=== PATIENT | female | born 1965 | race Two or more races ===

== ENCOUNTER 2016-12-31 21:22 | Emergency (ER) | payer BC ==
[~2016-12-31] VITALS: Ht 154.9 cm; Wt 80.8 kg
[2016-12-31] MEDS ORDERED: LABETALOL 20 MG/4 ML IVPush STA (21:38)
[2016-12-31] MEDS ORDERED: hydrALAzine 20 MG/ML, 1ML IV ONE (22:00)
[2016-12-31] MEDS ORDERED: CLON0.1T PO (22:07)
[2016-12-31 22:13] LABS: HEMOGLOBIN 13.5 g/dL (11.7-16.4)
[2016-12-31] MEDS ORDERED: LOSA1TAB17 PO (22:14)
[2016-12-31] MEDS ORDERED: ATEN50TA41 PO (22:15)
[2016-12-31 22:22] LABS: BLOOD UREA NITROGEN 25 mg/dL (7-18)
[2016-12-31 22:26] VITALS: BP 146/70
[2016-12-31 22:28] LABS: IS PT STATUS REG ER OR PRE ER? YES
== END 2016-12-31 23:21 | disposition home or self-care (01) ==
LOC: ED 23:15
DX: I10 Essential (primary) hypertension (principal)
CPT/HCPCS: 36415; 80048; 82040; 84484; 85025; 93005; 99285; J3490

== ENCOUNTER → 2017-03-09 | Outpatient (CLI) | payer BC ==
[~2017-03-09] MED LIST: ATEN50TA41 PO; CLON0.1T PO; LOSA1TAB17 PO; REGADENOSON 0.4 MG/5 ML SYRINGE ONE
== END | disposition home or self-care (01) ==
LOC: CFH 12:26
PROVIDERS: ATTEND Internal Medicine Cardiovascular Disease
DX: I08.3 Combined rheumatic disorders of mitral, aortic and tricuspid valves (principal); I10 Essential (primary) hypertension; R94.31 Abnormal electrocardiogram [ECG] [EKG]
CPT/HCPCS: 78452; 93017; 93306; A9502; J2785

== ENCOUNTER → 2017-05-07 | Outpatient (CLI) | payer BC ==
[~2017-05-07] MED LIST changes: -REGADENOSON 0.4 MG/5 ML SYRINGE ONE
== END | disposition home or self-care (01) ==
LOC: CFH 14:34
PROVIDERS: ATTEND Obstetrics & Gynecology Female Pelvic Medicine and Reconstructive Surgery
DX: N63 Unspecified lump in breast (principal)
CPT/HCPCS: 76641; G0206

== ENCOUNTER → 2017-05-10 | Outpatient (CLI) | payer BC ==
[~2017-05-10] MED LIST changes: +LIDOCAINE 1%, 20ML ONE; +LIDOCAINE 1%-EPI 1:100K, 20ML ONE; +SODIUM BICARBONATE 4.2%, 5ML ONE
== END | disposition home or self-care (01) ==
LOC: CFH 07:19
PROVIDERS: ATTEND Obstetrics & Gynecology Female Pelvic Medicine and Reconstructive Surgery
DX: N63 Unspecified lump in breast (principal)
CPT/HCPCS: 19083; 88305; G0206; J3490; 77063

== ENCOUNTER → 2017-05-31 | Outpatient (CLI) | payer BC ==
[~2017-05-31] MED LIST changes: -LIDOCAINE 1%, 20ML ONE; -LIDOCAINE 1%-EPI 1:100K, 20ML ONE; -SODIUM BICARBONATE 4.2%, 5ML ONE
== END | disposition home or self-care (01) ==
LOC: ROC 10:00
PROVIDERS: ATTEND Radiology Radiation Oncology
DX: N63 Unspecified lump in breast (principal)
CPT/HCPCS: 99214; G0463

== ENCOUNTER → 2017-07-19 | Outpatient (CLI) | payer BC ==
[~2017-07-19] MED LIST changes: -LOSA1TAB17 PO; +LOSA1TAB22 PO
== END | disposition home or self-care (01) ==
LOC: ROC 08:46
PROVIDERS: ATTEND Radiology Radiation Oncology
DX: C50.912 Malignant neoplasm of unspecified site of left female breast (principal); Z90.710 Acquired absence of both cervix and uterus
CPT/HCPCS: 99212; G0463

== ENCOUNTER → 2017-10-18 | Outpatient (CLI) | payer BC | END | disposition home or self-care (01) | LOC: ROC 14:38 | PROVIDERS: ATTEND Radiology Radiation Oncology | DX: Z08 Encounter for follow-up examination after completed treatment for malignant neoplasm (principal); C50.112 Malignant neoplasm of central portion of left female breast | CPT/HCPCS: 99212; G0463 ==

== ENCOUNTER → 2018-01-20 | Outpatient (CLI) | payer BC | END | disposition home or self-care (01) | LOC: CFH 09:58 | PROVIDERS: ATTEND Internal Medicine Hematology & Oncology | DX: Z13.820 Encounter for screening for osteoporosis (principal); C50.212 Malignant neoplasm of upper-inner quadrant of left female breast; Z78.0 Asymptomatic menopausal state | CPT/HCPCS: 77080 ==

== ENCOUNTER → 2018-03-14 | Outpatient (CLI) | payer BC | END | disposition home or self-care (01) | LOC: ROC 09:58 | PROVIDERS: ATTEND Radiology Radiation Oncology | DX: Z08 Encounter for follow-up examination after completed treatment for malignant neoplasm (principal); C50.112 Malignant neoplasm of central portion of left female breast | CPT/HCPCS: 99212; G0463 ==

== ENCOUNTER → 2018-04-27 | Outpatient (CLI) | payer BC | END | disposition home or self-care (01) | LOC: CFH 12:09 | PROVIDERS: ATTEND Radiology Radiation Oncology | DX: C50.112 Malignant neoplasm of central portion of left female breast (principal); N64.89 Other specified disorders of breast | CPT/HCPCS: 77066 ==

== ENCOUNTER 2018-10-17 12:16 | Outpatient (CLI) | payer BC ==
[~2018-10-17 12:16] MED LIST changes: -CLON0.1T PO; +CLON0.1T22 PO
== END 2018-10-17 23:59 | disposition home or self-care (01) ==
LOC: CFH 12:16
PROVIDERS: ATTEND Surgery
DX: Z08 Encounter for follow-up examination after completed treatment for malignant neoplasm (principal); Z85.3 Personal history of malignant neoplasm of breast; Z92.3 Personal history of irradiation
CPT/HCPCS: 77065; G0279

== ENCOUNTER → 2018-10-28 | Outpatient (CLI) | payer BC | END | disposition home or self-care (01) | LOC: RAD 16:00 | PROVIDERS: ATTEND Family Medicine | DX: M77.32 Calcaneal spur, left foot (principal); D48.7 Neoplasm of uncertain behavior of other specified sites; Z79.899 Other long term (current) drug therapy ==

== ENCOUNTER → 2019-03-17 | Outpatient (CLI) | payer BC | END | disposition home or self-care (01) | LOC: RAD 15:47 | PROVIDERS: ATTEND Family Medicine | DX: M25.511 Pain in right shoulder (principal) ==

== ENCOUNTER 2019-04-28 08:17 | Outpatient (CLI) | payer BC | END 2019-04-28 23:59 | disposition home or self-care (01) | LOC: CFH 08:17 | PROVIDERS: ATTEND Internal Medicine Hematology & Oncology | DX: Z12.31 Encounter for screening mammogram for malignant neoplasm of breast (principal); Z85.3 Personal history of malignant neoplasm of breast | CPT/HCPCS: 76641; 77063; 77067 ==

== ENCOUNTER 2019-05-02 11:07 | Outpatient (CLI) | payer BC | END 2019-05-02 23:59 | disposition home or self-care (01) | LOC: ROC 11:07 | PROVIDERS: ATTEND Radiology Radiation Oncology | DX: C50.919 Malignant neoplasm of unspecified site of unspecified female breast (principal) | CPT/HCPCS: 99212; G0463 ==

== ENCOUNTER 2020-02-26 10:38 | Outpatient (CLI) | payer BC | END 2020-02-26 23:59 | disposition home or self-care (01) | LOC: ROC 10:38 | PROVIDERS: ATTEND Radiology Radiation Oncology | DX: Z08 Encounter for follow-up examination after completed treatment for malignant neoplasm (principal); C50.112 Malignant neoplasm of central portion of left female breast; E11.22 Type 2 diabetes mellitus with diabetic chronic kidney disease; I12.9 Hypertensive chronic kidney disease with stage 1 through stage 4 chronic kidney disease, or unspecified chronic kidney disease; N18.3 Chronic kidney disease, stage 3 (moderate); E87.6 Hypokalemia | CPT/HCPCS: 99213; G0463 ==

== ENCOUNTER → 2020-05-10 | Outpatient (CLI) | payer BC | END | disposition home or self-care (01) | LOC: CFH 07:25 | PROVIDERS: ATTEND Internal Medicine Hematology & Oncology | DX: Z12.31 Encounter for screening mammogram for malignant neoplasm of breast (principal) | CPT/HCPCS: 76641; 77063; 77067 ==

== ENCOUNTER 2020-10-31 09:36 | Outpatient (CLI) | payer BC | END 2020-10-31 23:59 | disposition home or self-care (01) | LOC: ROC 09:36 | PROVIDERS: ATTEND Radiology Radiation Oncology | DX: Z08 Encounter for follow-up examination after completed treatment for malignant neoplasm (principal); Z85.3 Personal history of malignant neoplasm of breast | CPT/HCPCS: 99213; G0463 ==

== ENCOUNTER 2021-05-16 15:21 | Outpatient (CLI) | payer BC | END 2021-05-16 23:59 | disposition home or self-care (01) | LOC: CFH 15:21 | PROVIDERS: ATTEND Internal Medicine Hematology & Oncology | DX: Z12.31 Encounter for screening mammogram for malignant neoplasm of breast (principal); N64.89 Other specified disorders of breast; Z85.3 Personal history of malignant neoplasm of breast | CPT/HCPCS: 76641; 77063; 77067 ==